=== PATIENT | female | born 1990 | race Hispanic/Latino ===

== ENCOUNTER → 2021-10-23 09:20 | Outpatient (CLI) | payer OTHER, SELFPAY ==
[2021-10-23 10:56] LABS: Prolactin 13.3 ng/mL (3.0-18.6)
[2021-10-23 10:57] LABS: Progesterone, Total 4.56 ng/mL
== END ==
PROVIDERS: PCP Obstetrics & Gynecology; Referring Provider Obstetrics & Gynecology; Visit Provider Obstetrics & Gynecology
DX: N92.6 Irregular menstruation, unspecified (principal)
CPT/HCPCS: 36415; 84144; 84146

== ENCOUNTER → 2022-03-16 12:34 | Outpatient (CLI) | payer OTHER, SELFPAY ==
--- NOTE | 2022-03-16 12:36 | DI.RAD.S_ITS ---
PROCEDURE: HL HYSTEROSAPINGOGRAPHY INDICATIONS: Infertility COMPARISON: None. FINDINGS: Patient had a documented negative test prior to the study. Following speculum insertion, a balloon-tip catheter was inserted into the cervical canal by the referring clinician, and secured by inflating the balloon. Contrast was then injected into the endometrial canal. Uterus: The uterine cavity appears normal in size and morphology, without synechiae or masses. Fallopian tubes: Both fallopian tubes fill with contrast, and appear normal in caliber and morphology. There is ready dispersion of contrast into the peritoneal cavity. IMPRESSION: Patent fallopian tubes bilaterally. Dictated by: Francine Oreilly M.D. on 03/16/2022 at 14:03 Approved by: Francine Oreilly M.D. on 03/16/2022 at 14:04
== END ==
PROVIDERS: Referring Provider Obstetrics & Gynecology; Visit Provider Obstetrics & Gynecology
DX: N97.9 Female infertility, unspecified (principal); Z31.69 Encounter for other general counseling and advice on procreation
CPT/HCPCS: 58340; 74740

== ENCOUNTER → 2022-09-08 08:11 | Outpatient (CLI) | payer OTHER, SELFPAY ==
--- NOTE | 2022-09-08 08:12 | DI.US.S_ITS ---
PROCEDURE: US OB <= 14 WEEKS FETUS INDICATIONS: DATING OUTSIDE/PRIOR DATING DATA: Last menstrual period (LMP): 07/12/2022. LMP-based estimated date of delivery (SVEN): 04/18/2023. First dating scan (date and location): Today's exam. Estimated date of delivery (SVEN) from first dating scan: 04/18/2023 The calculations are made using the ultrasound/clinical SVEN of 04/18/2023. TECHNIQUE: Real-time scanning was performed of the fetus and maternal pelvic organs, with image documentation. Endovaginal scanning was also performed to better visualize the fetus and maternal ovaries. COMPARISON: None. FINDINGS: Single living intrauterine . Embryo: 1.8 centimeter, 8 weeks 2 days Heart rate: 158 beats per minute Maternal organs: Ovaries demonstrate a left-sided corpus luteum. IMPRESSION: Single living intrauterine at 8 weeks 2 days, concordant with clinical dating. We strive to produce accurate, complete, and clear reports of imaging services. To assist us in improving patient care, this report was composed using standard report templates and voice recognition software. Therefore, it may contain abnormal punctuation, insertions and/or omissions. Occasional wrong-word or sound-alike substitutions may occur. Though we review the report and make efforts to correct it, we do recommend that the report be read carefully in proper context to recognize any text inaccuracies. Dictated by: Maurice Montero M.D. on 09/08/2022 at 15:24 Approved by: Maurice Montero M.D. on 09/08/2022 at 15:27
== END ==
PROVIDERS: Referring Provider Obstetrics & Gynecology; Visit Provider Obstetrics & Gynecology
DX: Z34.01 Encounter for supervision of normal first pregnancy, first trimester (principal); Z3A.08 8 weeks gestation of pregnancy
CPT/HCPCS: 76801; 76817

== ENCOUNTER → 2022-10-07 14:27 | Outpatient (CLI) | payer OTHER, SELFPAY ==
[2022-10-07 14:46] LABS: Miscellaneous to LabCorp NATERA KIT
[2022-10-07 15:03] LABS: Add Manual Diff / Slide Review NO; Basophils Absolute Auto 0 /uL (0-100); Basophils Percent Auto 0.5 % (0-2); Eosinophils Absolute Auto 200 /uL (0-450); Eosinophils Percent Auto 1.5 % (2-4); Hematocrit 35.4 % (36-46); Hemoglobin 12.2 g/dL (12.0-16.0); Lymphocytes Absolute Auto 1700 /uL (1100-4500); Lymphocytes Percent Auto 16.9 % (25-40); Mean Corpuscular HGB Conc 34.5 % (30-36); Mean Corpuscular Hemoglobin 30.5 PG (26-34); Mean Corpuscular Volume 88.4 fL (80-100); Monocytes Absolute Auto 600 /uL (0-900); Monocytes Percent Auto 6.3 % (3-14); Neutrophils Absolute Auto 7700 /uL (1500-7000); Neutrophils Percent Auto 74.8 % (50-75); Platelet Count 314 X10^3/uL (150-400); Red Blood Cell Count 4.01 X10^6/uL (4.0-5.2); Red Cell Distribution Width 13.1 % (11.6-14.8); White Blood Cell Count 10.3 X10^3/uL (4.5-11.0)
[2022-10-07 20:36] LABS: Urine N gonorrhoeae NOT DETECTED
[2022-10-07 20:38] LABS: Urine Chlamydia NOT DETECTED
[2022-10-08 04:00] LABS: RPR Screen Non Reactive (Non Reactive)
[2022-10-08 09:30] LABS: Varicella IgG Antibody <135 index (Immune >165)
[2022-10-10 20:28] LABS: Hepatitis B Surface Antigen NEGATIVE s/c (NEGATIVE); Rubella Antibody IgG 29.8 IU/mL (>15)
[2022-10-10 20:45] LABS: Hep C Virus Ab w/Reflex Quant NEGATIVE s/c (NEGATIVE)
[2022-10-10 20:46] LABS: HIV 1 & 2 Ab/Ag 4th Gen Combo NEGATIVE (NEGATIVE)
== END ==
PROVIDERS: Referring Provider Obstetrics & Gynecology; Visit Provider Obstetrics & Gynecology
DX: Z34.01 Encounter for supervision of normal first pregnancy, first trimester (principal); Z3A.12 12 weeks gestation of pregnancy
CPT/HCPCS: 36415; 80055; 86787; 86803; 86850; 86900; 86901; 87389; 87491; 87591

== ENCOUNTER → 2022-11-04 14:49 | Outpatient (CLI) | payer OTHER, SELFPAY ==
[2022-11-07 14:19] LABS: AFP Value 43.4 ng/mL (.); Gest Age on Col Date 16.4 weeks (.); Insulin Dep Diabetes No (.); OSBR Risk 1IN 6916 (.); Results Report (.); Test Results *Screen Negative* (.)
[2022-11-08 10:03] LABS: PDF SCANNED
== END ==
PROVIDERS: PCP Nurse Practitioner; Referring Provider Obstetrics & Gynecology; Visit Provider Obstetrics & Gynecology
DX: Z34.02 Encounter for supervision of normal first pregnancy, second trimester (principal); Z3A.16 16 weeks gestation of pregnancy
CPT/HCPCS: 36415; 82105

== ENCOUNTER → 2022-12-01 12:13 | Outpatient (CLI) | payer OTHER, SELFPAY ==
--- NOTE | 2022-12-01 12:13 | DI.US.S_ITS ---
PROCEDURE: US OB >= 14 WEEKS FETUS INDICATIONS: 20 week anatomy scan OUTSIDE/PRIOR DATING DATA: Last menstrual period (LMP): 07/12/2022. LMP-based estimated date of delivery (SVEN): 04/18/2023. First dating scan (date and location): 09/08/2022. Estimated date of delivery (SVEN) from first dating scan: 04/18/2023. The calculations are made using the working SVEN of 04/18/2023. TECHNIQUE: Real-time scanning was performed of the fetus, with image documentation and biometric measurements. Endovaginal scanning: None COMPARISON: None. FINDINGS: General: A single living intrauterine gestation is present. Presentation: Vertex. Placenta: Placental position is tear , without previa. Amniotic fluid index: 14.2 cm, normal range is 5-24 cm. Single deepest vertical pocket is 4.8 cm. heart rate: 150 beats per minute. Maternal cervical canal: 4.2 cm long. Normal lower limit is 2.5 cm. biometrics: Biparietal diameter: 4.6 cm, 20 week 0 day Head circumference: 18.1 cm, 20 week 3 day Abdominal circumference: 15.9 cm, 21 week 1 day Femur length: 3.4 cm, 20 week 4 day Clinically estimated gestational age: 20 week 2 day Composite gestational age from present scan: 20 week 4 day Estimated weight and percentile: 376 g, 73rd percentile Anatomic survey: Neuro: Ventricles are non-dilated at less than 10 mm. Cisterna magna is normal at 3-11 mm. Cerebellum is normal in size and morphology. Nuchal skin fold: Normal at less than 6 mm between 14-21 weeks gestational age. Face: Nose and lips, facial profile are normal. Spine: No evidence for spina bifida. Heart: 4-chambered heart is present, with normal ventricular outflow tracts. Diaphragm: Diaphragm is intact. Stomach: Left-sided stomach is present. Kidneys: No hydronephrosis. Normal is less than 5 mm in 2nd trimester, less than 7 mm in 3rd trimester. Cord: 3-vessel cord has orthotopic insertion. Bladder: Normal in size. Extremities: All 4 extremities identified. IMPRESSION: Single live intrauterine consistent with a 20 week 4 day gestation by current ultrasound Approved by: Young Redding M.D. on 12/01/2022 at 16:45
== END ==
PROVIDERS: PCP Nurse Practitioner; Referring Provider Obstetrics & Gynecology; Visit Provider Obstetrics & Gynecology
DX: Z34.02 Encounter for supervision of normal first pregnancy, second trimester (principal); Z3A.20 20 weeks gestation of pregnancy
CPT/HCPCS: 76811

== ENCOUNTER → 2023-01-06 15:01 | Outpatient (CLI) | payer OTHER, SELFPAY ==
[2023-01-06 17:14] LABS: Hematocrit 34.2 % (36-46); Hemoglobin 11.8 g/dL (12.0-16.0)
[2023-01-06 17:40] LABS: GTT (PREG) 1 Hour PP 50gm Dose 124 mg/dL (76-139)
== END ==
PROVIDERS: PCP Nurse Practitioner; Referring Provider Specialist; Visit Provider Specialist
DX: Z34.02 Encounter for supervision of normal first pregnancy, second trimester (principal); Z3A.26 26 weeks gestation of pregnancy
CPT/HCPCS: 36415; 82950; 85014; 85018

== ENCOUNTER → 2023-03-22 12:43 | Outpatient (CLI) | payer OTHER, SELFPAY ==
[2023-03-23 14:39] LABS: Strep Grp B PCR NEG for Grp B Strep
== END ==
PROVIDERS: PCP Nurse Practitioner; Visit Provider Obstetrics & Gynecology
DX: Z34.03 Encounter for supervision of normal first pregnancy, third trimester (principal); Z3A.36 36 weeks gestation of pregnancy
CPT/HCPCS: 87653

== ENCOUNTER 2023-03-27 19:01 | Inpatient (IN) | payer OTHER, SELFPAY ==
--- NOTE | 2023-03-27 20:48 | P.HPOB_ITS ---
OB HPI Date/Time Date of admission: 03/27/23 Date Patient Seen: 03/27/23 Time Patient Seen: 20:49 History of Present Condition Chief complaint: JUP, 36+6 wks, SROM, GBS Negative status : 1 Para: 0 Estimated Date of Delivery: 04/18/23 Estimated Gestational Age (weeks): 37+0 Narrative: Juli Rose is a 32 year old primigravida who experienced spontaneous rupture membranes on the evening of 03/27/2023 and who presents in latent phase labor. course has been unremarkable with solid early dating and appropriate milestones throughout. GBS status is negative. History of Present care: good care Dating criteria: LMP confirmed by 1st trimester US Ultrasounds: normal 1st trimester US and normal mid trimester US Obstetrical complications: none Medical complications: none Preadmission Labs Blood type: A (+) positive -: Antibody screen: negative, GBS status: negative, HBsAG: negative, HIV: negative and RPR/VDLR: negative -: Chlamydia screen: not detected and Gonorrhea screen: not detected -: Rubella: immune and Varicella: not immune HCT: 34.6 HCAB: negative PAP: Normal Quad screen: Normal (AFP testing negative) Cell-free DNA: Low risk male 1 hr GTT: 124 Prior (ies) History: Primigravida Evaluation Evaluation Baseline heart rate: 145 Variability: Moderate (11-25) monitor accelerations: Present Monitor Decelerations: Absent Contraction Frequency (minutes): 6 Uterine Contraction Intensity: Moderate Category of Tracing: Reactive Status: Category l Dilation (cm): 3 Effacement (%): 80 Dilation: 3-4 cm Effacement: >/=80% station: 0 Position of cervix: mid Consistency: soft Palencia score: 10 Non-invasive Membranes Rupture Test: positive [facility] Medical History (Updated 03/14/23 @ 08:51 by Josh Perla MD) Shoulder pain (~2018) Carpal tunnel syndrome (~2018) Ruptured tympanic membrane (~2001) Human papilloma virus (~2016) Abnormal Pap smear of cervix (~2016) History of HPV infection Depression (~2008) Scoliosis (~2004) Surgical History (Updated 09/06/22 @ 21:46 by Julissa Laguerre) Anesthesia History of loop electrical excision procedure (LEEP) (~2018) H/O wisdom tooth extraction (~2011) Hx of external ear surgery (~2018) Family History (Updated 08/15/22 @ 11:36 by Amie Rocha RN) Father Family estrangement Mother Hypertension Hyperlipidemia Brother Depression Anxiety Family/Other Breast cancer Family/Other Brain cancer Family/Other Brain cancer Social History (Updated 10/09/21 @ 19:58 by Brooke Rich MD) marital status: number of children: 0 household members: spouse lives independently: Yes caregiver/support person: No housing: house pets and animals: Yes (2 cats, 1 large dog; aware of toxo precautions) education level: college (bachelor's degree) 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) special shaggy needs: No travel history: over 6 months ago seatbelt use: always helmet use: Yes water heater temp set < 120 deg: Yes working smoke detector in home: Yes fire extinguisher in home: Yes carbon monox detector in home: Yes firearms in home: No do you feel safe at home: Yes Smoking Status: Former smoker Tobacco: How many years used: 10 second hand exposure: Yes ( working to quit vaping) alcohol intake: never substance use type: does not use during the past year weight has: remained stable well-balanced diet: about half the time daily servings fruits/ve-4 caffeine: Yes (1 Keurig K-cup/day) Type(s) of exercise: walking frequency: daily duration: < 15 minutes/day additional social history: rare alcohol. Quit smoking 02/2021 Meds Home Medications and Allergies Home Medications Medication Instructions Recorded Confirmed Type prenat.vits,betina,uud-ogjl-vwjvd 1 tab PO DAILY 08/15/22 03/28/23 History bupropion HCl 150 mg tablet,12 hr 150 mg PO BID #60 ea 02/03/23 03/27/23 Rx sustained-release ondansetron 4 mg disintegrating 4 mg PO Q6H PRN nausea and 02/03/23 03/28/23 Rx tablet vomiting #20 tabs omeprazole 40 mg capsule,delayed 40 mg PO DAILY #30 caps 03/14/23 03/28/23 Rx release RSVPreF3 antigen-AS01E 0.5 ml IM ONCE #1 ea 03/24/23 03/27/23 Rx adjuvant(PF) 120 mcg/0.5 mL IM suspension, kit Allergies Allergy/AdvReac Type Severity Reaction Status Date / Time No Known Allergies Allergy Verified 03/22/23 11:53 Review of Systems Review of Systems Narrative: Problem-specific ROS positives included in HPI OB Exam Vital signs Blood Pressure: 101/58 Pulse Rate: 72 Temperature: 97.2 F HENMT Head: normal to inspection, normocephalic and atraumatic Eyes General: appearance normal, both eyes and all related structures Resp Effort & Inspection: normal respiratory effort and able to speak in complete sentences Auscultation: clear to auscultation bilaterally Cardio Rate: regular rate Rhythm: regular rhythm Heart Sounds: S1 normal, S2 normal and no murmurs Extremities Lower extremity: Yes normal to inspection GI Inspection: normal to inspection Palpation: Yes soft and Yes no hepatosplenomegaly Uterus Location (Fundal Height): 36 Estimated Weight (lbs): 6 Objective Labs 03/27/23 21:49 03/27/23 23:00 Assessment and Plan Assessment and Plan Assessment and Plan narrative: ASSESSMENT 1. Intrauterine , 37+ 0 weeks gestational age 2. Spontaneous rupture membranes 3. GBS negative status PLAN 1. Admit for delivery 2. See admission orders
[2023-03-27 22:28] LABS: Add Manual Diff / Slide Review NO; Basophils Absolute Auto 0 /uL (0-100); Basophils Percent Auto 0.3 % (0-2); Eosinophils Absolute Auto 100 /uL (0-450); Eosinophils Percent Auto 0.6 % (2-4); Hematocrit 34.6 % (36-46); Hemoglobin 11.7 g/dL (12.0-16.0); Lymphocytes Absolute Auto 1800 /uL (1100-4500); Lymphocytes Percent Auto 20.6 % (25-40); Mean Corpuscular HGB Conc 33.7 % (30-36); Mean Corpuscular Hemoglobin 29.3 PG (26-34); Mean Corpuscular Volume 86.8 fL (80-100); Monocytes Absolute Auto 500 /uL (0-900); Monocytes Percent Auto 5.8 % (3-14); Neutrophils Absolute Auto 6500 /uL (1500-7000); Neutrophils Percent Auto 72.7 % (50-75); Platelet Count 262 X10^3/uL (150-400); Red Blood Cell Count 3.98 X10^6/uL (4.0-5.2); Red Cell Distribution Width 13.4 % (11.6-14.8)
[2023-03-27 23:24] LABS: BUN Creatinine Ratio 19.1 (6-22); Blood Urea Nitrogen 13 mg/dL (7-17); Calcium 9.1 mg/dL (8.4-10.2); Carbon Dioxide 17 mmol/L (22-32); Chloride 108 mmol/L (98-107); Estimated Glomerular Filt Rate > 60 mL/min (>60); Glucose 81 mg/dL (70-100); HEMOLYSIS < 15 (0-50); Sodium 134 mmol/L (137-145)
[2023-03-28] MEDS: LACTATED RINGERS 1,000 ML 100 ML IV ×2 (07:40→11:12)
[2023-03-28 09:05] VITALS: BP 101/58; PULSE 72; TEMP 36.2
[2023-03-28] MEDS: OXYTOCIN PREMIX 30 UNIT/500 ML PLAST..BAG IV (09:30)
--- NOTE | 2023-03-28 15:58 | P.PCNOB_ITS ---
Events: Premature Rupture Membrane Labor & Delivery Delivery date: 03/28/23 Intrapartal Events: Hypotonic Dysfunction Cervical ripening method: none Induction method: none Delivery augmentation: pitocin Delivery monitor: external FHT and external uterine Route of delivery: Episiotomy description: None L&D Laceration Description: Periurethral - 1st Degree and Perineal - 1st Degree Delivery repair: chromic Estimated blood loss (mL): 200 Anesthesia Type: Epidural Complications: None Narrative: After a 2nd stage lasting less than an hour, the patient delivered spontaneously over an intact perineum viable and vigorous male infant. No shoulder dystocia cord entanglement was noted. Skin to skin contact was initiated immediately and delayed cord clamping performed. Once the umbilical cord was doubly clamped and cut, specimen cord blood was obtained for routine studies. Placenta was then delivered easily with gentle cord traction and suprapubic countertraction. Intravenous Pitocin was initiated immediately and excellent control of bleeding was easily achieved. Inspection of the perineum showed sup erficial 1st degree abrasions in the periurethral areas on both sides. In addition there was a superficial first-degree laceration on the left side of the perineum. The periurethral abrasions did not require closure but the perineal laceration was closed with 2-0 chromic in a running in interlocking stitch. Sponge and needle counts were correct at the completion of the delivery process which was well tolerated by both mother and baby. Baby 1: Infant gender: Male Presentation: vertex Position: Right Occiput Anterior Placenta delivery description: Spontaneous Cord Vessel Description: 3 Vessels score (1 min): 9 score (5 min): 9 weight: 7 lb 2.217 oz
[2023-03-28] MEDS: IBUPROFEN 600 MG TABLET PO (20:25)
[2023-03-28] MEDS: ACETAMINOPHEN 325 MG TABLET 650 MG PO (20:25)
[2023-03-28] MEDS: DOCUSATE 100 MG CAPSULE PO (20:26)
[2023-03-28] MEDS: LANOLIN OINT 7 GM 1 APPLIC TOP (20:26)
[2023-03-28] MEDS: DERMOPLAST SPRAY 20% 60 ML 1 SPRAY TOP (20:26)
[2023-03-28] MEDS: buPROPion SR 150 MG TAB PO (21:32)
[2023-03-28] MEDS: ONDANSETRON 4 MG/2 ML INJ IV (22:00)
[2023-03-29] MEDS: ACETAMINOPHEN 325 MG TABLET 650 MG PO ×2 (02:14→15:06)
[2023-03-29] MEDS: IBUPROFEN 600 MG TABLET PO ×2 (02:15→10:07)
[2023-03-29 06:33] LABS: Add Manual Diff / Slide Review NO; Basophils Absolute Auto 0 /uL (0-100); Basophils Percent Auto 0.3 % (0-2); Eosinophils Absolute Auto 0 /uL (0-450); Eosinophils Percent Auto 0.4 % (2-4); Hemoglobin 10.3 g/dL (12.0-16.0); Lymphocytes Absolute Auto 2000 /uL (1100-4500); Lymphocytes Percent Auto 19.3 % (25-40); Mean Corpuscular HGB Conc 34.2 % (30-36); Mean Corpuscular Hemoglobin 29.5 PG (26-34); Mean Corpuscular Volume 86.2 fL (80-100); Monocytes Absolute Auto 900 /uL (0-900); Monocytes Percent Auto 8.9 % (3-14); Neutrophils Absolute Auto 7500 /uL (1500-7000); Neutrophils Percent Auto 71.1 % (50-75); Platelet Count 217 X10^3/uL (150-400); Red Blood Cell Count 3.48 X10^6/uL (4.0-5.2); Red Cell Distribution Width 13.2 % (11.6-14.8); White Blood Cell Count 10.5 X10^3/uL (4.5-11.0)
[2023-03-29 10:07] VITALS: TEMP 37.2
[2023-03-29] MEDS: DOCUSATE 100 MG CAPSULE PO (10:07)
[2023-03-29] MEDS: buPROPion SR 150 MG TAB PO (10:23)
--- NOTE | 2023-03-29 13:08 | P.DS_ITS ---
Discharge Providers Provider Date of admission: 03/27/23 19:01 Discharge Date: 03/29/23 Primary care physician: APOLONIA Kendall Consults: 03/27/23 20:08 Consult to Anesthesiology Urgent Comment: Consulting Provider: Josh Perla Reason for consultation: Epidural 03/29/23 15:56 Consult to [employer] Regener[employer] Operator Routine Comment: Discharge provider: Josh Perla MD Summary Hospital Course Date Patient Seen: 03/29/23 Time Patient Seen: 08:25 Diagnoses: Intrauterine gestation, 37+ 0 weeks gestational age, delivered by spontaneous vaginal Hospital Course: Juli was admitted late on 03/27/2023 with spontaneous rupture of membranes and progressed well with an epidural in place for pain relief. She delivered on the afternoon of 03/28/2023 the viable male infant with Apgars of 9/9 and a weight of 3239 g (7 lb 2.2 oz). Following delivery both mother and baby have done extremely well with the mother experiencing prompt return of bowel and bladder function, she is ambulating independently, tolerating regular diet, and her pain is well controlled with oral pain medications. She will be discharged at this time to home in an afebrile normotensive condition after counseling regarding precautionary symptoms, limitations of activity, medications, and plans for follow-up which will be in 6 weeks. Patient will resume all preadmission medications and will using [id number]-psukcki Tylenol and/or ibuprofen as needed for pain relief. Peripartum Data Delivery Method: Natural Vaginal Laceration Description: Periurethral - 1st Degree and Perineal - 1st Degree Episiotomy description: None Procedures: Continuous lumbar epidural anesthesia Spontaneous vaginal with repair of first-degree perineal laceration complications: none 1: Gender: Male Disposition of : home Status at Discharge Cognitive/behavioral status at discharge: oriented Functional status at discharge: independent ambulation Overall status at discharge: patient is progressing back to baseline Time Spent with Patient Time attestation: Total time spent providing and/or coordinating discharge services: Time spent: Less than 30 minutes Objective Labs 03/29/23 06:15 03/27/23 23:00 Labs: Laboratory Results - last 24 hr 03/29/23 06:15 WBC 10.5 RBC 3.48 L Hgb 10.3 L Hct 30.0 L MCV 86.2 MCH 29.5 MCHC 34.2 RDW 13.2 Plt Count 217 Neut % (Auto) 71.1 Lymph % (Auto) 19.3 L [place] % (Auto) 8.9 Eos % (Auto) 0.4 L Baso % (Auto) 0.3 Neut # (Auto) 7500 H Lymph # (Auto) 2000 Clinton # (Auto) 900 Eos # (Auto) 0 Baso # (Auto) 0 Exam Vital Signs (past 8 hours): - 03/29/23 10:07 Temperature 99.0 F HENMT Head: normal to inspection, normocephalic and atraumatic Eyes General: appearance normal, both eyes and all related structures Resp Effort & Inspection: normal respiratory effort and able to speak in complete sentences Auscultation: clear to auscultation bilaterally Cardio Rate: regular rate Rhythm: regular rhythm Heart Sounds: S1 normal, S2 normal and no murmurs GI Inspection: normal to inspection Palpation: soft and no hepatosplenomegaly Uterus Location (Fundal Height): 18 (Firm nontender fundus, U -3) Extrem Right lower extremity: normal to inspection Discharge Plan Discharge Plan Patient Disposition: Home Provider Discharge Comment: Please review the written instructions you received when you were discharged from the hospital. Your follow-up appointment will be scheduled for 6 weeks after delivery and I look forward to seeing you then. If however in the meanwhile you have any issues, concerns, or questions, please contact me either through the office phone at [phone], or via the patient portal. Discharge orders & Medications Prescriptions: Continued RSVPreF3 antigen-AS01E (PF) 120 mcg/0.5 mL suspension for reconstitution 0.5 ml IM ONCE Qty: 1 0RF omeprazole 40 mg capsule,delayed release(DR/EC) 40 mg PO DAILY Qty: 30 4RF prenat.vits,beitna,llf-ixsa-rohsr Tablet 1 tab PO DAILY bupropion HCl 150 mg tablet sustained-release 12 hr 150 mg PO BID Qty: 60 12RF ondansetron 4 mg tablet,disintegrating 4 mg PO Q6H PRN (Reason: nausea and vomiting) Qty: 20 3RF Follow up/Referrals: Elisha Daigle ARNP [Primary Care Provider] - Josh Perla MD [Physician] - Discharge Health Status Multidrug resistant organism: No MDRO Diet/Activity/Treatments Diet: Diet as Tolerated Activity: As tolerated Other treatments: Tnfu-yjg-pudpsas Tylenol and/or ibuprofen may be used for additional pain. Tmbl-gdu-euerjba stool softeners and/MiraLax used as needed constipation. Skin/Wound/Dressing Care Report to your healthcare provider any signs of infection, such as:: chills, fever, increased pain, unusual drainage and unusual redness Dressing: N/A Visit Report/Discharge Packet Instructions: DI for Labor and Delivery, Vaginal , DI for and Nipple Soreness Discharge Data Primary Care Provider: Elisha Daigle
[2023-03-29 14:29] VITALS: BP 122/79; PULSE 87; RESP 17; TEMP 37.2
[2023-03-29 15:06] VITALS: TEMP 37.1
== END 2023-03-29 14:45 | disposition home or self-care (01) | DRG 807 ==
PROVIDERS: Admitting Provider Obstetrics & Gynecology; PCP Nurse Practitioner; Referring Provider Obstetrics & Gynecology; Visit Provider Obstetrics & Gynecology
DX: O42.02 Full-term premature rupture of membranes, onset of labor within 24 hours of rupture (principal); Z37.0 Single live birth; Z3A.37 37 weeks gestation of pregnancy; O62.2 Other uterine inertia; O70.0 First degree perineal laceration during delivery
CPT/HCPCS: 36415; 59050; 59400; 80048; 85025; 86850; 86900; 86901; G0379; J2405; J2590

== ENCOUNTER → 2024-07-17 10:54 | Outpatient (CLI) | payer OTHER, SELFPAY ==
[2024-07-17 12:02] LABS: Natera Collection Specimen Collected
[2024-07-17 12:16] LABS: Add Manual Diff / Slide Review NO; Basophils Absolute Auto 0 /uL (0-100); Basophils Percent Auto 0.5 % (0-2); Eosinophils Absolute Auto 0 /uL (0-450); Eosinophils Percent Auto 0.5 % (2-4); Hematocrit 36.1 % (36-46); Hemoglobin 12.2 g/dL (12.0-16.0); Lymphocytes Absolute Auto 1600 /uL (1100-4500); Mean Corpuscular HGB Conc 33.8 % (30-36); Mean Corpuscular Hemoglobin 30.7 PG (26-34); Mean Corpuscular Volume 90.9 fL (80-100); Monocytes Absolute Auto 400 /uL (0-900); Neutrophils Absolute Auto 6800 /uL (1500-7000); Platelet Count 310 X10^3/uL (150-400); Red Blood Cell Count 3.97 X10^6/uL (4.0-5.2); Red Cell Distribution Width 13.8 % (11.6-14.8); White Blood Cell Count 8.9 X10^3/uL (4.5-11.0)
[2024-07-18 06:05] LABS: RPR Screen Non Reactive (Non Reactive)
[2024-07-18 09:09] LABS: Varicella IgG Antibody Non Reactive (Non Reactive)
[2024-07-18 15:14] LABS: Hepatitis B Surface Antigen NEGATIVE s/c (NEGATIVE); Rubella Antibody IgG 42.3 IU/mL (>15)
[2024-07-18 15:32] LABS: HIV 1 & 2 Ab/Ag 4th Gen Combo NEGATIVE (NEGATIVE); Hep C Virus Ab w/Reflex Quant NEGATIVE s/c (NEGATIVE)
== END ==
PROVIDERS: Obstetrics & Gynecology; PCP Nurse Practitioner; Referring Provider Specialist; Visit Provider Specialist
DX: Z34.80 Encounter for supervision of other normal pregnancy, unspecified trimester (principal); Z3A.11 11 weeks gestation of pregnancy
CPT/HCPCS: 36415; 80055; 86787; 86803; 86850; 86900; 86901; 87389

== ENCOUNTER → 2024-09-11 09:11 | Outpatient (CLI) | payer OTHER, SELFPAY | PROVIDERS: Obstetrics & Gynecology; PCP Nurse Practitioner; Referring Provider Pediatrics; Visit Provider Pediatrics | DX: Z34.92 Encounter for supervision of normal pregnancy, unspecified, second trimester (principal); Z3A.19 19 weeks gestation of pregnancy | CPT/HCPCS: 36415; 82105 ==

== ENCOUNTER → 2024-09-12 12:13 | Outpatient (CLI) | payer OTHER, SELFPAY ==
--- NOTE | 2024-09-12 12:14 | DI.US.S_ITS ---
PROCEDURE: US OB >= 14 WEEKS FETUS INDICATIONS: ANATOMY OUTSIDE/PRIOR DATING DATA: Last menstrual period (LMP): 04/25/24. LMP-based estimated date of delivery (SVEN): 01/30/25. First dating scan (date and location): 06/19/24. Estimated date of delivery (SVEN) from first dating scan: 02/04/25. The calculations are made using the working SVEN of 01/30/25. TECHNIQUE: Real-time scanning was performed of the fetus, with image documentation and biometric measurements. Endovaginal scanning: No COMPARISON: [facility], OB >= 14 WEEKS FETUS, 12/01/2022, 12:30. FINDINGS: General: A single living intrauterine gestation is present. Presentation: Breech. Placenta: Placental position is anterior , without previa. Amniotic fluid index: 17.2 cm, normal range is 5-24 cm. Single deepest vertical pocket is 5.9 cm. heart rate: 149 beats per minute. Maternal cervical canal: Closed and 3.0 cm long. Normal lower limit is 2.5 cm. biometrics: Biparietal diameter: 4.6 cm, 20 weeks 0 days Head circumference: 17.4 cm, 20 weeks 0 days Abdominal circumference: 14.7 cm, 19 weeks four days Femur length: 3.2 cm, 19 weeks six days Clinically estimated gestational age: 20 weeks 0 days Composite gestational age from present scan: 19 weeks six days Estimated weight and percentile: 311 g, 32nd percentile Anatomic survey: Neuro: Ventricles are non-dilated at less than 10 mm. Cisterna magna is normal at 3-11 mm. Cerebellum is normal in size and morphology. Nuchal skin fold: Normal at less than 6 mm between 14-21 weeks gestational age. Face: Nose and lips, facial profile are normal. Spine: No evidence for spina bifida. Heart: 4-chambered heart is present, with normal ventricular outflow tracts. Diaphragm: Diaphragm is intact. Stomach: Left-sided stomach is present. Kidneys: Mild right renal pelviectasis at 5.3 mm. Normal left renal pelvis. Normal is less than 5 mm in 2nd trimester, less than 7 mm in 3rd trimester. Cord: 3-vessel cord has orthotopic insertion. Bladder: Normal in size. Extremities: All 4 extremities identified. IMPRESSION: Single living intrauterine with estimated weight at the 32nd percentile. Symmetric growth in good agreement with the expected gestational age. Minor right renal pelviectasis. Otherwise normal anatomy. Recommend follow-up in the 3rd trimester. Anterior placenta. Closed cervix and normal amniotic fluid volume. We strive to produce accurate, complete, and clear reports of imaging services. To assist us in improving patient care, this report was composed using standard report templates and voice recognition software. Therefore, it may contain abnormal punctuation, insertions and/or omissions. Occasional wrong-word or sound-alike substitutions may occur. Though we review the report and make efforts to correct it, we do recommend that the report be read carefully in proper context to recognize any text inaccuracies. Dictated by: Leena Donato M.D. on 09/13/2024 at 13:25 Approved by: Leena Donato M.D. on 09/13/2024 at 13:51
== END ==
PROVIDERS: PCP Nurse Practitioner; Referring Provider Obstetrics & Gynecology; Visit Provider Obstetrics & Gynecology
DX: Z34.82 Encounter for supervision of other normal pregnancy, second trimester (principal); Z3A.19 19 weeks gestation of pregnancy
CPT/HCPCS: 76811

== ENCOUNTER → 2024-10-17 08:47 | Outpatient (CLI) | payer OTHER, SELFPAY ==
[2024-10-17 11:09] LABS: Add Manual Diff / Slide Review NO; Hematocrit 32.4 % (36-46); Hemoglobin 11.2 g/dL (12.0-16.0); Lymphocytes Absolute Auto 1500 /uL (1100-4500); Mean Corpuscular HGB Conc 34.6 % (30-36); Mean Corpuscular Hemoglobin 31.2 PG (26-34); Mean Corpuscular Volume 90.3 fL (80-100); Platelet Count 277 X10^3/uL (150-400)
[2024-10-17 11:24] LABS: GTT (PREG) 1 Hour PP 50gm Dose 106 mg/dL (76-139)
== END ==
PROVIDERS: PCP Nurse Practitioner; Referring Provider Obstetrics & Gynecology; Visit Provider Obstetrics & Gynecology
DX: Z34.92 Encounter for supervision of normal pregnancy, unspecified, second trimester (principal); Z3A.26 26 weeks gestation of pregnancy
CPT/HCPCS: 36415; 82950; 85025

== ENCOUNTER → 2025-01-08 09:57 | Outpatient (CLI) | payer OTHER, SELFPAY ==
[2025-01-09 10:41] LABS: Strep Grp B PCR NEG for Grp B Strep
== END ==
PROVIDERS: PCP Nurse Practitioner; Visit Provider Obstetrics & Gynecology
DX: Z34.80 Encounter for supervision of other normal pregnancy, unspecified trimester (principal); Z3A.36 36 weeks gestation of pregnancy
CPT/HCPCS: 87653

== ENCOUNTER → 2025-01-16 10:40 | Outpatient (CLI) | payer OTHER, SELFPAY ==
--- NOTE | 2025-01-16 10:41 | DI.US.S_ITS ---
PROCEDURE: US OB FOLLOW UP INDICATIONS: Follow up ultrasound look at bladder OUTSIDE/PRIOR DATING DATA: Working SVEN is 01/30/2025 TECHNIQUE: Real-time scanning was performed of the fetus, with image documentation. COMPARISON: [facility], , OB FOLLOW UP, 11/28/2024, 8:57. FINDINGS: A single living intrauterine gestation is present. Presentation: Vertex. Placenta: Placental position is anterior, without previa. Amniotic fluid index: 25.4 cm, normal range is 5-24 cm. Single deepest vertical pocket is 8.3 cm. heart rate: 141 beats per minute. Maternal cervical canal: Not well seen Clinically estimated gestational age: 38 weeks Uzix-is-vshddpkf distention of the urinary bladder again seen. Right renal pelviectasis measuring 9.9 mm. IMPRESSION: Intrauterine gestation with cardiac motion in vertex presentation. Polyhydramnios, new from prior, JORDAN of 25.4. Right renal pelviectasis at 9.9 mm, UTD A1. Persistent ukit-ft-rugwosdf distention of the urinary bladder. Clinical and imaging follow-up recommended. Dictated by: Edward Mason M.D. on 01/16/2025 at 14:48 Approved by: Edward Mason M.D. on 01/16/2025 at 14:52
== END ==
LOC: US 10:41
PROVIDERS: PCP Nurse Practitioner; Referring Provider Obstetrics & Gynecology; Visit Provider Obstetrics & Gynecology
DX: O40.3XX0 Polyhydramnios, third trimester, not applicable or unspecified (principal); Z3A.38 38 weeks gestation of pregnancy
CPT/HCPCS: 76816

== ENCOUNTER 2025-01-18 01:46 | Inpatient (IN) | payer OTHER, SELFPAY ==
[2025-01-18 03:09] LABS: Add Manual Diff / Slide Review NO; Hematocrit 30.1 % (36-46); Hemoglobin 10.0 g/dL (12.0-16.0); Lymphocytes Absolute Auto 2000 /uL (1100-4500); Mean Corpuscular HGB Conc 33.1 % (30-36); Mean Corpuscular Hemoglobin 27.6 PG (26-34); Mean Corpuscular Volume 83.3 fL (80-100); Platelet Count 275 X10^3/uL (150-400)
[2025-01-18 03:10] VITALS: BP 120/77
[2025-01-18] MEDS: LACTATED RINGERS 1,000 ML 100 ML IV (03:55)
--- NOTE | 2025-01-18 04:51 | P.PCN_ITS ---
[facility] <Anny Adkins, DO - Last Filed: 01/18/25 05:02> Pre-procedure Procedure: Continuous Lumbar Epidural for L&D (with dural puncture) Attending OB provider: Liana SUN/VIRY narrative: 34yo female at 38w2d in labor requesting epidural. See pre-anesthesia evaluation for further details. Hx: No personal or family history of anesthesia problems. ASA Class: II Labs: Hct 30.1 % (36-46) L 01/18/25 02:50 Plt Count 275 X10^3/uL (150-400) 01/18/25 02:50 Medications: Current Medications Generic Name Dose Route Start Last Admin Trade Name Freq PRN Reason Stop Dose Admin Calcium Carbonate 1,000 mg 01/18/25 02:30 Calcium Carbonate 500 Mg Tab PO Q2HR PRN Dyspepsia Carboprost Tromethamine 250 mcg 01/18/25 02:30 Carboprost 250 Mcg/Ml Ampul IM Q90M PRN Bleeding Lactated Ringer's 1,000 mls @ 100 mls/hr 01/18/25 02:30 01/18/25 03:55 Lactated Ringers IV 01/18/25 12:29 100 mls/hr CONT GRANT Administration Oxytocin/Lactated Ringer's 30 unit in 500 mls @ 200 mls/hr 01/18/25 02:30 Oxytocin Premix IV CONT PRN Bleeding Protocol Tranexamic Acid 1,000 mg/ 100 mls @ 600 mls/hr 01/18/25 02:30 Sodium Chloride IV NOW PRN Bleeding Lidocaine HCl 20 ml 01/18/25 02:30 Lidocaine 1% 20 Ml INJ INTRA-OP PRN Post Delivery Methylergonovine Maleate 0.2 mg 01/18/25 02:30 Methylergonovine 0.2 Mg Tablet PO Q6HR PRN Heavy Bleeding Methylergonovine Maleate 0.2 mg 01/18/25 02:30 Methylergonovine 0.2 Mg/Ml Vial IM NOW PRN Bleeding Mineral Oil 30 ml 01/18/25 02:30 Mineral Oil 30 Ml Udc TOP PRN PRN Version Misoprostol 800 mcg 01/18/25 02:30 Misoprostol 200 Mcg Tablet KS NOW PRN Bleeding Misoprostol 400 mcg 01/18/25 02:30 Misoprostol 200 Mcg Tablet SL NOW PRN Bleeding Naloxone HCl 0.2 mg 01/18/25 02:30 Naloxone 0.4 Mg/Ml Vial IV Q2MIN PRN Opiate Reversal Ondansetron HCl 4 mg 01/18/25 02:30 Ondansetron 4 Mg/2 Ml Inj IV Q4HR PRN Nausea And Vomiting Oxytocin 10 unit 01/18/25 02:30 Oxytocin 10 Unit/Ml Vial IM NOW PRN Bleeding Allergies: Allergies Allergy/AdvReac Type Severity Reaction Status Date / Time No Known Allergies Allergy Verified 01/18/25 03:13 Procedure Insertion date: 01/18/25 Insertion time: 04:19 Prep/Local: 1% lidocaine (Chloraprep) Interspace: L3-4 Patient position: sitting Needle: 17 gauge Tuohy (18g x 2. Easy MILTON both times. ) Loss of resistance with: saline MILTON at (cm): 5 Catheter placed at SKIN (cm): 14 (First catheter placement at 04:12; catheter slid back out with Tuohy removal and only 4 cm remained. Explained to pt that I needed to replace the catheter. Second placement at same site was uneventful. ) Catheter in SPACE (cm): 9 Insertion: Yes CSF, No Blood, No Paresthesia with insertion, No Paresthesia with injection and No Test dose reaction Initial Medications TEST DOSE time: 04:22 TEST DOSE: 1.5% lidocaine with epinephrine 1:200k (mL): 3 BOLUS DOSE time: 04:23 BOLUS DOSE (mL): 2 BOLUS DOSE med: other (Same as test dose) Infusion Initial rate (mL/hr): 8 (04:39) Subsequent interventions: When I went to connect the catheter to the infusion line, catheter was noted to have become disconnected from yellow connector. Scissors used to cut off ~4 of catheter end. Alcohol swabs x 2 to sterilize end of catheter. Reconnected to connector and checked carefully to ensure clicked into place. Discussed with pt and partner and RN Francois. At time of epidural infusion start, pt reports no contraction pain. Able to move BLE well. Vanna Post-procedure Anesthesia date START: 01/18/25 Anesthesia time START: 04:04 <Mackenzie Suggs CRNA - Last Filed: 01/18/25 14:57> Post-procedure Anesthesia date END: 01/18/25 Anesthesia time END: 11:12 Post-procedure Anesthesia Assessment: Yes CV function: HR/BP stable, Yes Resp function: RR/sat/airway adequate, Yes Post-op hydration adequate, Yes Pain contr ol adequate, Yes Nausea & vomiting absent, Yes Temperature > 36 C, Yes Mental status appropriate and Yes Anesthesia complications
[2025-01-18] MEDS: OXYTOCIN PREMIX 30 UNIT/500 ML PLAST..BAG IV (08:36)
[2025-01-18] MEDS: SERTRALINE 50 MG TABLET PO ×2 (08:40→21:03)
[2025-01-18] MEDS: CALCIUM CARBONATE 500 MG TAB 1000 MG PO (09:05)
[2025-01-18] MEDS: PANTOPRAZOLE 40 MG VIAL 20 MG IV (09:38)
[2025-01-18] MEDS: FENT 2MCG/ML BUPIV 0.125% EPI 200 MCG/100 ML PLAST..BAG 8 MCG EPIDURAL (10:35)
--- NOTE | 2025-01-18 11:27 | PM.OBHP.IH.1 ---
OB HPI Date/Time Date of admission: 01/18/25 Date Patient Seen: 01/18/25 Time Patient Seen: 09:30 History of Present Condition Chief complaint: NST SVEN Calculator Estimated Delivery Date Method Current WG Current Estimate 01/30/25 LMP (Certain) 38w 2d Other Estimates 02/04/25 Ultrasound #1 37w 4d Estimated Gestational Age (weeks): 38w2d : 2 Para: 1 Narrative: Patient is a 34yo @ 38w2d presents to L&D with frequent/painful contractions and leaking fluid. She reports good movement. denies any vaginal bleeding. care: good care Dating criteria OB: LMP confirmed by 1st trimester US Obstetrical complications: none Medical complications OB: none External History : 2 Para: 1 Indications Other reason(s) for admission: active labor Preadmission Labs Last OB Lab Results: Blood Type A Positive Today, 02:50 Antibody Screen Negative Today, 02:50 Hct, (36-46) 30.1 % L Today, 02:50 Hgb, (12.0-16.0) 10.0 g/dL L Today, 02:50 Hep Bs Antigen, (NEGATIVE) Negative s/c 07/17/24, 11:02 Hepatitis C Antibody, (NEGATIVE) Negative s/c 07/17/24, 11:02 Rubella Antibody, (>15) 42.3 IU/mL 07/17/24, 11:02 VZV IgG Antibody, (Non Reactive) Non reactive 07/17/24, 11:02 Glucose 1 Hr 50 gm, (76-139) 106 mg/dL 10/17/24, 08:51 Group B Strep (PCR) Neg for grp b strep 01/08/25, 09:57 -: Chlamydia screen: negative and Gonorrhea screen: negative Prior (ies) Past Pregnancies Del. Date GA/Weeks Labor Lgth Wt Sex Route Outcome Anesthesia Place Delv Breastfeed Preg Comp Name 03/28/23 37 18 7 lb 2 oz Male vaginal live - full term epidural IH 1 year Olga Hx # Term Pregnancies: 2 Number of Living Children: 1 Evaluation Evaluation Baseline heart rate: 145 Variability: Moderate (6-25) monitor accelerations: Present Monitor Decelerations: Absent Contraction Frequency (minutes): 3 Uterine Contraction Intensity: Strong/Firm Category of Tracing: Reactive Status: Category l Dilation (cm): 4 Effacement (%): 90 Dilation: 3-4 cm Effacement: 60-70% station: -2 Position of cervix: mid Consistency: medium Palencia score: 7 PFSH Medical History (Updated 06/10/24 @ 11:08 by Amie Rocha RN) Shoulder pain (~2018) Carpal tunnel syndrome (~2018) Ruptured tympanic membrane (~2001) Human papilloma virus (~2016) Abnormal Pap smear of cervix (~2016) History of HPV infection Scoliosis (~2004) Surgical History (Updated 09/06/22 @ 21:46 by Julissa Laguerre) Anesthesia History of loop electrical excision procedure (LEEP) (~2018) H/O wisdom tooth extraction (~2011) Hx of external ear surgery (~2018) Family History (Updated 08/15/22 @ 11:36 by Amie Rocha RN) Father Family estrangement Mother Hypertension Hyperlipidemia Brother Depression Anxiety Family/Other Breast cancer Family/Other Brain cancer Family/Other Brain cancer Social History (Updated 10/09/21 @ 19:58 by Brooke Rich MD) marital status: number of children: 1 household members: spouse lives independently: Yes caregiver/support person: Yes housing: house pets and animals: Yes (2 cats, 1 large dog) education level: college (bachelor's degree) 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) special shaggy needs: No travel history: over 6 months ago seatbelt use: always helmet use: Yes water heater temp set < 120 deg: Yes working smoke detector in home: Yes fire extinguisher in home: Yes carbon monox detector in home: Yes firearms in home: No do you feel safe at home: Yes Smoking Status: Former smoker Tobacco: How many years used: 10 second hand exposure: No alcohol intake: former (~2/week when not ) substance use type: does not use during the past year weight has: other (~5-10 lb above pre- wt (son is 14 months old)) well-balanced diet: rarely or never daily servings fruits/ve-1 (1-2) caffeine: Yes (1 Keurig K-cup/day) Type(s) of exercise: walking frequency: 5-6 times per week duration: < 15 minutes/day additional social history: rare alcohol. Quit smoking 02/2021 Meds Home Medications and Allergies Home Medications ?Medication ?Instructions ?Recorded ?Confirmed ?Type prenat.vits,betina,kau-otib-ysppb 1 tab PO DAILY 08/15/22 01/18/25 History sertraline 50 mg tablet 50 mg PO BID #60 tabs 02/12/24 01/18/25 Rx omeprazole 40 mg capsule,delayed 40 mg PO DAILY #30 caps 11/20/24 01/18/25 Rx release RSVPreF3 antigen-AS01E 0.5 ml IM ONCE #1 ea 12/10/24 01/15/25 Rx adjuvant(PF) 120 mcg/0.5 mL IM suspension, kit Allergies Allergy/AdvReac Type Severity Reaction Status Date / Time No Known Allergies Allergy Verified 01/18/25 03:13 Review of Systems Constitutional Constitutional: Reports as per HPI Objective Labs 01/18/25 02:50 Labs: Laboratory Results - last 24 hr 01/18/25 02:50 WBC 10.7 RBC 3.61 L Hgb 10.0 L Hct 30.1 L MCV 83.3 MCH 27.6 MCHC 33.1 RDW 13.6 Plt Count 275 Neut % (Auto) 71.6 Lymph % (Auto) 19.1 L [place] % (Auto) 7.4 Eos % (Auto) 1.3 L Baso % (Auto) 0.6 Neut # (Auto) 7600 H Lymph # (Auto) 2000 [place] # (Auto) 800 Eos # (Auto) 100 Baso # (Auto) 100 Blood Type A Positive Antibody Screen Negative Assessment and Plan Assessment and Plan Assessment and Plan narrative: Patient is a 34yo @ 38w2d presents in active labor/SROM 1. Active labor- admit to L&D - CEMF, IVF, NPO - FHTs category 1- reassuring - vertex on exam - GBS negative - anesthesia per request - will augment with pitocin if indicated per protocol - EFW- 6.5lbs by marcio's dispo- anticipate vaginal delivery Time-Based Coding :: [TOTAL MINUTES] spent with patient and on the chart (including review of chart, obtaining history, exam, reviewing outside data, placing orders, documenting exam and treatment plan, and counseling patient) on [DATE].
--- NOTE | 2025-01-18 11:27 | PM.OBPRVD ---
Events: Labor Augmentation Labor & Delivery Delivery date: 01/18/25 Delivery Time: 11:12 Intrapartal Events: None Cervical ripening method: none Induction method: none Delivery augmentation: pitocin Delivery monitor: external FHT Route of delivery: L&D Laceration Description: None Estimated blood loss (mL): 300 Anesthesia Type: Epidural Complications: OP presentation at delivery Narrative: Anabella is a 34yo @ 38.2wks presented to L&D with contracions and leaking fluid overnight. She received an epidural for pain control. Contractions spaced out after epidural so pitocin started and titrated up to 4 mu/min. She progressed to complete dilation and forebag ruptured with copious clear fluid. She then pushed for a short time and progressed to an uncomplicated over an intact perineum. Placenta delivered spontaneously and pitocin started for active management of the 3rd stage. Patient and baby healthy and bonding in delivery room. [place] Baby 1: Infant gender: Female Presentation: vertex Position: Occiput Posterior Placenta delivery description: Spontaneous Cord Vessel Description: 3 Vessels and Around Body x1 score (1 min): 9 score (5 min): 9 Plan for aftercare: Routine care
[2025-01-18] MEDS: ACETAMINOPHEN 325 MG TABLET 650 MG PO ×2 (13:14→18:53)
[2025-01-18] MEDS: DERMOPLAST SPRAY 20% 60 ML 1 SPRAY TOP (13:14)
[2025-01-18] MEDS: IBUPROFEN 600 MG TABLET PO ×2 (13:16→18:53)
[2025-01-19] MEDS: IBUPROFEN 600 MG TABLET PO ×2 (01:55→07:42)
[2025-01-19] MEDS: ACETAMINOPHEN 325 MG TABLET 650 MG PO ×2 (01:55→07:41)
[2025-01-19] MEDS: SERTRALINE 50 MG TABLET PO (07:41)
[2025-01-19 12:40] VITALS: BP 121/82; PULSE 78; RESP 16; TEMP 37
--- NOTE | 2025-01-19 12:45 | P.DS_ITS ---
Discharge Providers Provider Date of admission: 01/18/25 01:46 Discharge Date: 01/19/25 Primary care physician: APOLONIA Kendall Consults: 01/18/25 02:31 Consult to Anesthesiology Urgent Comment: Consulting Provider: Anesthesiologist Reason for consultation: Epidural 01/18/25 12:20 Consult to Warehousing Technician Routine Comment: Discharge provider: Liana Cote DO Summary Hospital Course Date Patient Seen: 01/19/25 Time Patient Seen: 12:45 Diagnoses: fulll term vaginal delivery of live Hospital Course: Patient is a 34yo G2 now P2002 presented to in active lbaor at 38w2d. received an epidural for pain control and pitocin started for augmentation of labor. she then progressed to complete dilation and an uncomplicated . Uncomplicated course and discharged home on PPD 1 Peripartum Data Delivery Method: Natural Vaginal Laceration Description: None Procedures: , epidural complications: none Discharge Diagnosis (1) Encounter for supervision of other normal , unspecified trimester: Status: Acute Status at Discharge Cognitive/behavioral status at discharge: oriented Functional status at discharge: independent ambulation Overall status at discharge: patient is back to baseline Time Spent with Patient Time attestation: Total time spent providing and/or coordinating discharge services: Time spent: Less than 30 minutes Objective Labs 01/18/25 02:50 Exam Narrative Exam Narrative: General- AAO, x3 abdomen- soft fundus firm lochia normal LE- trace edema Discharge Plan Discharge Plan Patient Disposition: Home Discharge orders & Medications Prescriptions: Continued sertraline 50 mg tablet 50 mg PO BID Qty: 60 12RF RSVPreF3 antigen-AS01E (PF) 120 mcg/0.5 mL suspension for reconstitution 0.5 ml IM ONCE Qty: 1 0RF Rx Instructions: as a single dose omeprazole 40 mg capsule,delayed release(DR/EC) 40 mg PO DAILY Qty: 30 12RF prenat.vits,betina,sfw-xmiv-sjiyi Tablet 1 tab PO DAILY Follow up/Referrals: Elisha Daigle ARNP [Primary Care Provider, Nursing] Liana Cote DO [Physician, Gynecology] Diet/Activity/Treatments Diet: Regular Activity: pelvic rest x 6 weeks Skin/Wound/Dressing Care Report to your healthcare provider any signs of infection, such as:: chills, fever, unusual drainage and unusual redness Visit Report/Discharge Packet Stand Alone Forms: Patient Portal/API, Stroke Signs & Symptoms Discharge Data Primary Care Provider: Elisha Daigle Attending Provider: Liana Cote Admcherie Date/Time: 01/18/25 01:46
== END 2025-01-19 13:15 | disposition home or self-care (01) | DRG 807 ==
PROVIDERS: Admitting Provider Obstetrics & Gynecology; PCP Nurse Practitioner; Referring Provider Family Medicine; Visit Provider Obstetrics & Gynecology
DX: O80 Encounter for full-term uncomplicated delivery (principal); Z37.0 Single live birth; Z3A.38 38 weeks gestation of pregnancy; Z86.19 Personal history of other infectious and parasitic diseases
CPT/HCPCS: 36415; 59050; 84112; 85025; 86850; 86900; 86901; G0378; G0379; J2470; J2590; J7120

== ENCOUNTER 2025-01-25 09:44 | Emergency (ER) | payer OTHER, SELFPAY ==
[2025-01-25] VITALS (11 sets, daily range): BP systolic 110–121; BP diastolic 64–106; PULSE 61–93; RESP 14–16; TEMP 37.1; O2SAT 96–100; BMI 27.1
--- NOTE | 2025-01-25 10:02 | DI.US.S_ITS ---
PROCEDURE: US PELVIC COMPLETE INDICATIONS: 7 DAYS ; CRAMPING TECHNIQUE: Real-time scanning was performed of the pelvic organs, with image documentation. COMPARISON: None. FINDINGS: Uterus: Large uterus measures 11.6 x 9.6 cm. Thickened complex endometrium measures 2.8 cm. Focal echogenic area within the endometrium measures 3.4 x 1.7 x 2.5 cm. No internal vascularity utilizing both color and power Doppler. Ovaries: Nonvisualized Other: No pathologic free abdominal or pelvic fluid. IMPRESSION: Thickened heterogenous endometrium. More focal echogenic area within the endometrium without internal vascularity most consistent with clotted blood products. Consider short-term interval follow-up to exclude retained products of conception. Approved by: Young Redding M.D. on 01/25/2025 at 10:31
--- NOTE | 2025-01-25 10:02 | DI.CT.S_ITS ---
PROCEDURE: CT ABDOMEN PELVIS W CON INDICATIONS: RLQ pain post 7 days TECHNIQUE: After the administration of intravenous contrast, axial sections acquired from the lung bases to the pubic symphysis. Coronal and sagittal reformats were performed. For radiation dose reduction, the following was used: automated exposure control, adjustment of mA and/or kV according to patient size. COMPARISON: None. FINDINGS: Image quality: Diagnostic. Lower Chest: No significant findings. Breast tissue hypertrophy consistent with recent . ABDOMEN: Liver: No solid mass. Gallbladder: No radiopaque gallstones or wall thickening. Biliary ducts: No biliary dilation. Pancreas: No ductal dilation. Spleen: Size is within normal limits. Adrenal Glands: No adrenal nodules. Kidneys and Ureters: No hydronephrosis. No solid mass. No complex renal cystic lesion which requires follow up. Stomach and Bowel: Normal colonic caliber, without significant wall thickening. Normal appendix. Moderate fecal debris throughout the colon Peritoneum: No abnormal intraperitoneal fluid. No free air. Ventral Wall: No significant ventral hernia. Abdominal Nodes: No retroperitoneal or mesenteric adenopathy by size criteria. Vessels: Aorta and inferior vena cava are normal in size. PELVIS: Pelvic Organs: uterus. Endometrial thickness 2.3 cm Bladder: No bladder wall thickening, accounting for underdistention. Pelvic Nodes: No enlarged lymph nodes. Miscellaneous: No inguinal hernias are seen. Bones: No aggressive osseous abnormality. IMPRESSION: Moderate fecal debris throughout the colon. Normal appendix. No abscess or or obstruction. uterus. Approved by: Young Redding M.D. on 01/25/2025 at 9:57
--- NOTE | 2025-01-25 10:04 | ED.ABDPAIN ---
HPI - Abdominal Pain General Chief Complaint: Abdominal Pain Stated Complaint: 7 days post /uterine pain/chills/nausea Time Seen by Provider: 01/25/25 09:49 Source: patient Mode of arrival: Ambulatory History of Present Illness HPI narrative: Patient is a healthy 34-year-old female presenting today with abdominal pain chills sweats and right lower quadrant pain. She had an uncomplicated vaginal on January 18. She thinks the bleeding has slowed down but this morning she had really intense abdominal pain and cramping. More localized on the right side. She has had some body aches no documented fever. She got nauseous almost threw up but did not throw up. Related Data Home Medications ?Medication ?Instructions ?Recorded ?Confirmed prenat.vits,betina,[id number] 1 tab PO DAILY 08/15/22 01/18/25 Previous Rx's ?Medication ?Instructions ?Recorded sertraline 50 mg tablet 50 mg PO BID #60 tabs 02/12/24 omeprazole 40 mg capsule,delayed 40 mg PO DAILY #30 caps 11/20/24 release RSVPreF3 antigen-AS01E 0.5 ml IM ONCE #1 ea 12/10/24 adjuvant(PF) 120 mcg/0.5 mL IM suspension, kit amoxicillin 500 mg capsule 500 mg PO TID #21 caps 01/25/25 misoprostol 200 mcg tablet 400 mcg (2 x 200 mcg) PO BID #8 01/25/25 tabs Allergies Allergy/AdvReac Type Severity Reaction Status Date / Time No Known Allergies Allergy Verified 01/25/25 10:03 Patient History Medical History Shoulder pain (~2018) Carpal tunnel syndrome (~2018) Ruptured tympanic membrane (~2001) Human papilloma virus (~2016) Abnormal Pap smear of cervix (~2016) History of HPV infection Scoliosis (~2004) Surgical History Anesthesia History of loop electrical excision procedure (LEEP) (~2018) H/O wisdom tooth extraction (~2011) Hx of external ear surgery (~2018) Family History Father Family estrangement Mother Hypertension Hyperlipidemia Brother Depression Anxiety Family/Other Breast cancer Family/Other Brain cancer Family/Other Brain cancer Social History marital status: number of children: 1 household members: spouse lives independently: Yes caregiver/support person: Yes housing: house pets and animals: Yes (2 cats, 1 large dog) education level: college (bachelor's degree) 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) special shaggy needs: No travel history: over 6 months ago seatbelt use: always helmet use: Yes water heater temp set < 120 deg: Yes working smoke detector in home: Yes fire extinguisher in home: Yes carbon monox detector in home: Yes firearms in home: No do you feel safe at home: Yes Smoking Status: Never smoker Tobacco: How many years used: 10 second hand exposure: No alcohol intake: former (~2/week when not ) substance use type: does not use during the past year weight has: other (~5-10 lb above pre- wt (son is 14 months old)) well-balanced diet: rarely or never daily servings fruits/ve-1 (1-2) caffeine: Yes (1 Keurig K-cup/day) Type(s) of exercise: walking frequency: 5-6 times per week duration: < 15 minutes/day additional social history: rare alcohol. Quit smoking 02/2021 Smoking Status: Never smoker Exam Initial Vital Signs Initial Vital Signs: Vital Signs Temperature 98.7 F 01/25/25 09:45 Pulse Rate 75 01/25/25 09:45 Respiratory Rate 14 01/25/25 09:45 Blood Pressure 117/64 01/25/25 09:45 Pulse Oximetry 100 01/25/25 09:45 Oxygen Delivery Method Room Air 01/25/25 09:45 GENERAL: Alert well-appearing 34-year-old female and in [no acute] distress. HEENT: Head atraumatic,EOMI, pupils reactive, face symmetric, [moist] mucous membranes CARDIOVASCULAR: Regular rate and rhythm without murmurs, rubs or gallops. RESPIRATORY: Breath sounds equal bilaterally, no wheezes rales or rhonchi. ABDOMEN: Soft, tender right lower quadrant pain no guarding no rebound : No CVA tenderness EXTREMITIES: Normal range of motion, no clubbing or edema. Neurovascularly intact NEUROLOGICAL: Alert and oriented x4.Normal gait and speech. Cranial nerves II through XII grossly intact. SKIN: Warm, dry, no laceration, no petechiae, no rashes or lesions. Course Orders Ordered: ED Orders 01/25/25 10:02 CT abdomen pelvis w con Stat US pelvic complete Stat 01/25/25 10:25 Complete Blood Count AUTO DIFF Stat Comprehensive Metabolic Panel Stat Lipase Stat Urinalysis Screen (Dip Only) Stat Urine Microscopic Stat Discontinued Medications Amoxicillin (Amoxicillin 250 Mg Capsule) 500 mg PO NOW ONE Stop: 01/25/25 14:19 Last Admin: 01/25/25 14:26 Dose: 500 mg Documented By: LEXI Ketorolac Tromethamine (Ketorolac 30 Mg/Ml Vial) 15 mg IV NOW ONE Stop: 01/25/25 10:03 Last Admin: 01/25/25 10:38 Dose: 15 mg Documented By: CHAYITO Vital Signs Vital signs: Vital Signs - 8 hr 01/25/25 09:45 01/25/25 09:49 01/25/25 09:50 Temperature 98.7 F Pulse Rate 75 77 Respiratory Rate 14 Blood Pressure 117/64 117/64 Pulse Oximetry 100 100 Oxygen Delivery Method Room Air 01/25/25 10:00 01/25/25 10:01 01/25/25 10:01 Temperature Pulse Rate 83 75 Respiratory Rate Blood Pressure 121/106 H Pulse Oximetry 99 99 Oxygen Delivery Method 01/25/25 10:30 01/25/25 11:00 01/25/25 11:30 Temperature Pulse Rate 93 H 73 74 Respiratory Rate Blood Pressure Pulse Oximetry 100 97 100 Oxygen Delivery Method 01/25/25 12:00 01/25/25 12:30 01/25/25 13:44 Temperature Pulse Rate 71 69 61 Respiratory Rate 16 Blood Pressure Pulse Oximetry 96 100 100 Oxygen Delivery Method 01/25/25 13:44 Temperature Pulse Rate Respiratory Rate 16 Blood Pressure 110/76 Pulse Oximetry Oxygen Delivery Method MDM - Abdominal Pain Lab Data 01/25/25 10:25 01/25/25 10:25 Labs: Lab Results 01/25/25 Range/Units 10:25 WBC 8.8 (4.5-11.0) X10^3/uL RBC 4.14 (4.0-5.2) X10^6/uL Hgb 11.4 L (12.0-16.0) g/dL Hct 34.5 L (36-46) % MCV 83.4 (80-100) fL MCH 27.5 (26-34) PG MCHC 33.0 (30-36) % RDW 13.8 (11.6-14.8) % Plt Count 393 (150-400) X10^3/uL Neut % (Auto) 79.2 H (50-75) % Lymph % (Auto) 13.0 L (25-40) % [place] % (Auto) 6.0 (3-14) % Eos % (Auto) 1.2 L (2-4) % Baso % (Auto) 0.6 (0-2) % Neut # (Auto) 7000 (5215-6196) /uL Lymph # (Auto) 1200 (5451-4711) /uL [place] # (Auto) 500 (0-900) /uL Eos # (Auto) 100 (0-450) /uL Baso # (Auto) 100 (0-100) /uL Sodium 139 (137-145) mmol/L Potassium 3.9 (3.4-5.1) mmol/L Chloride 108 H (98-107) mmol/L Carbon Dioxide 21 L (22-32) mmol/L BUN 15 (7-17) mg/dL Creatinine 0.81 (0.52-1.04) mg/dL Estimated GFR > 60 (>60) mL/min BUN/Creatinine Ratio 18.5 (6-22) Glucose 63 L (70-99) mg/dL Calcium 8.7 (8.4-10.2) mg/dL Total Bilirubin 0.2 (0.2-1.3) mg/dL AST 32 (14-36) IU/L ALT 33 (<35) IU/L Alkaline Phosphatase 128 H (38-126) U/L Total Protein 8.2 (6.3-8.2) g/dL Albumin 4.4 (3.5-5.0) g/dL Globulin 3.8 (1.7-4.1) g/dL Albumin/Globulin Ratio 1.2 (1.0-2.8) Lipase 88 (23-300) U/L Urine Color Yellow Urine Appearance Clear Urine pH 5.5 (4.5-8.0) Ur Specific [place] >=1.030 H (1.000-1.035) Urine Protein Negative (Negative) Urine Glucose (UA) Negative (Negative) g/dL Urine Ketones Trace H (NEGATIVE) Urine Occult Blood 2+ H (Negative) Urine Nitrate Negative (Negative) Urine Bilirubin Negative (NEGATIVE) Urine Urobilinogen 0.2 (0.2) E.U./dL Ur Leukocyte Esterase Negative (NEGATIVE) Urine RBC 10-30/hpf H (0-5/HPF) Urine WBC 0-1/hpf (0-5/HPF) Ur Squamous Epith Cells 1-5 /hpf (0-5/HPF) Urine Bacteria Occasional (0-1) (None) Urine Mucus 1+ H (Negative) Ur Culture Indicated? Cult not indicated Vol Urine Centrifuged 10ml (spun) Imaging Data CT scan - abdomen/pelvis: Radiologist's Impression: PROCEDURE: CT ABDOMEN PELVIS W CON INDICATIONS: RLQ pain post 7 days TECHNIQUE: After the administration of intravenous contrast, axial sections acquired from the lung bases to the pubic symphysis. Coronal and sagittal reformats were performed. For radiation dose reduction, the following was used: automated exposure control, adjustment of mA and/or kV according to patient size. COMPARISON: None. FINDINGS: Image quality: Diagnostic. Lower Chest: No significant findings. Breast tissue hypertrophy consistent with recent . ABDOMEN: Liver: No solid mass. Gallbladder: No radiopaque gallstones or wall thickening. Biliary ducts: No biliary dilation. Pancreas: No ductal dilation. Spleen: Size is within normal limits. Adrenal Glands: No adrenal nodules. Kidneys and Ureters: No hydronephrosis. No solid mass. No complex renal cystic lesion which requires follow up. Stomach and Bowel: Normal colonic caliber, without significant wall thickening. Normal appendix. Moderate fecal debris throughout the colon Peritoneum: No abnormal intraperitoneal fluid. No free air. Ventral Wall: No significant ventral hernia. Abdominal Nodes: No retroperitoneal or mesenteric adenopathy by size criteria. Vessels: Aorta and inferior vena cava are normal in size. PELVIS: Pelvic Organs: uterus. Endometrial thickness 2.3 cm Bladder: No bladder wall thickening, accounting for underdistention. Pelvic Nodes: No enlarged lymph nodes. Miscellaneous: No inguinal hernias are seen. Bones: No aggressive osseous abnormality. IMPRESSION: Moderate fecal debris throughout the colon. Normal appendix. No abscess or or obstruction. uterus. Approved by: Young Redding M.D. on 01/25/2025 at 9:57 US - CHILD AND ADOLESCENT PSYCHOLOGIST: Radiologist's Impression: PROCEDURE: US PELVIC COMPLETE INDICATIONS: 7 DAYS ; CRAMPING TECHNIQUE: Real-time scanning was performed of the pelvic organs, with image documentation. COMPARISON: None. FINDINGS: Uterus: Large uterus measures 11.6 x 9.6 cm. Thickened complex endometrium measures 2.8 cm. Focal echogenic area within the endometrium measures 3.4 x 1.7 x 2.5 cm. No internal vascularity utilizing both color and power Doppler. Ovaries: Nonvisualized Other: No pathologic free abdominal or pelvic fluid. IMPRESSION: Thickened heterogenous endometrium. More focal echogenic area within the endometrium without internal vascularity most consistent with clotted blood products. Consider short-term interval follow-up to exclude retained products of conception. Approved by: Young Redding M.D. on 01/25/2025 at 10:31 MDM Narrative Medical decision making narrative: Patient is a healthy 34-year-old female 7 days presenting today with pretty severe right lower quadrant pain. She has a report anymore bleeding she has had some chills but no documented fever. No painful frequent urination. Blood work has been reviewed overall reassuring she has no significant leukocytosis WBC is 8.8 no anemia electrolytes are within normal limits. Urinalysis has occasional bacteria but no definite UTI Imaging reviewed CT abdomen pelvis shows a normal appendicitis with a uterine Ultrasound thickened endometrium more focal echogenic area in endometrium most consistent with clotted blood products. Recommend short interval follow-up 2056 DR. Robles, OB sales operations consultant, updated patient's symptoms test results at this time recommends amoxicillin 500 mg 3 times a day along with misoprostol 400 b.i.d. for 4 days. Patient overall appears well nontoxic still mildly tender after Toradol in her right lower quadrant. Updated her and her in regards to the OB plan. They both understand and agree. Discharge Plan Departure Patient Disposition: Home Clinical Impression: Acute endometritis Instructions: Endometritis Activity Restrictions/Additional Instructions: *You have been diagnosed with possible endometritis *What to do: At this are empirically treating you for infection. Please call your OB to follow-up. *Continue to take medications as directed Amoxicillin 500 mg 3 times a day for 7 days Misoprostol 400 mg twice a day for 4 days Tylenol Motrin as needed for pain *Follow up with your primary care provider in 2-3 days or call [phone] Call your OB on Monday to schedule follow-up appoint *Return to ER if you should have increasing pain increased vaginal bleeding more than 2 pads in 1 hour fever greater than 101 or any new, worsening or concerning symptoms Prescriptions: New amoxicillin 500 mg capsule 500 mg PO TID Qty: 21 0RF misoprostol 200 mcg tablet 400 mcg PO BID Qty: 8 0RF No Action sertraline 50 mg tablet 50 mg PO BID Qty: 60 12RF RSVPreF3 antigen-AS01E (PF) 120 mcg/0.5 mL suspension for reconstitution 0.5 ml IM ONCE Qty: 1 0RF Rx Instructions: as a single dose omeprazole 40 mg capsule,delayed release(DR/EC) 40 mg PO DAILY Qty: 30 12RF prenat.vits,betina,fmp-yant-arqor Tablet 1 tab PO DAILY Referrals: Elisha Daigle ARNP [Primary Care Provider, Nursing] Stand Alone Forms: Patient Portal/API
[2025-01-25 10:35] LABS: Add Manual Diff / Slide Review NO; Hematocrit 34.5 % (36-46); Hemoglobin 11.4 g/dL (12.0-16.0); Lymphocytes Absolute Auto 1200 /uL (1100-4500); Mean Corpuscular HGB Conc 33.0 % (30-36); Mean Corpuscular Hemoglobin 27.5 PG (26-34); Mean Corpuscular Volume 83.4 fL (80-100); Platelet Count 393 X10^3/uL (150-400)
[2025-01-25] MEDS: KETOROLAC 30 MG/ML VIAL 15 MG IV (10:38)
[2025-01-25 10:40] LABS: Appearance Urine UA CLEAR; Bilirubin Urine UA NEGATIVE (NEGATIVE); Color Urine UA YELLOW; Glucose Urine UA NEGATIVE (Negative); Ketones Urine UA TRACE (NEGATIVE); Leukocyte Esterase Urine UA NEGATIVE (NEGATIVE); Nitrite Urine UA NEGATIVE (Negative); Occult Blood Urine UA 2+ (Negative); Protein Urine UA NEGATIVE (Negative); Specific Gravity Urine UA >=1.030 (1.000-1.035); Urobilinogen Urine UA 0.2 E.U./dL (0.2)
[2025-01-25 10:45] LABS: Alanine Aminotransferase 33 IU/L (<35); Albumin 4.4 g/dL (3.5-5.0); Albumin Globulin Ratio 1.2 (1.0-2.8); Alkaline Phosphatase 128 U/L (38-126); Blood Urea Nitrogen 15 mg/dL (7-17); Calcium 8.7 mg/dL (8.4-10.2); Carbon Dioxide 21 mmol/L (22-32); Chloride 108 mmol/L (98-107); Estimated Glomerular Filt Rate > 60 mL/min (>60); Globulin 3.8 g/dL (1.7-4.1); Glucose 63 mg/dL (70-99); HEMOLYSIS < 15 (0-50); Lipase 88 U/L (23-300); Potassium 3.9 mmol/L (3.4-5.1); Sodium 139 mmol/L (137-145); Total Protein 8.2 g/dL (6.3-8.2)
[2025-01-25 10:48] LABS: pH Urine UA 5.5 (4.5-8.0)
[2025-01-25 10:58] LABS: Culture Indicated Urine Cult Not Indicated
[2025-01-25] MEDS: AMOXICILLIN 250 MG CAPSULE 500 MG PO (14:26)
== END 2025-01-25 14:33 | disposition home or self-care (01) ==
PROVIDERS: Emergency Provider Emergency Medicine; PCP Nurse Practitioner
DX: O86.12 Endometritis following delivery (principal)
CPT/HCPCS: 36415; 74177; 76856; 80053; 81003; 81015; 83690; 85025; 96374; 99284; J1885; Q9967